=== PATIENT | female | born 1975 | race Caucasian/White ===

== ENCOUNTER 2022-09-12 14:17 | Emergency (ER) | payer BC, SELFPAY ==
[2022-09-12 15:22] VITALS: BP 187/97; PULSE 94; RESP 18; TEMP 36.8; O2SAT 99; BMI 26.6
--- NOTE | 2022-09-12 17:09 | ED_ITS ---
HPI - General Adult General Chief complaint: High Blood Pressure Stated complaint: High blood pressure Time Seen by Provider: 09/12/22 16:35 History of Present Illness HPI narrative: 47-year-old woman presenting here with significant other with concern of elevated blood pressure. Describes a history for years of some degree of white coat hypertension. Usually on the 2nd reading intends to come down. Has been measuring home blood pressures and at work today with more elevated pressure. Periodically will have brief rapid heart rates. Intermittently over the last week has been experiencing some blurriness in the left eye a stinging sensation laterally. That is continuing today. No nausea. Slight headache demonstrating the posterior head/neck. Urine has been dark today in spite of trying to hydrate. No fever. No cough cold symptoms. No hematuria. Has been having also some tingliness over her bilateral forearms hands in blood over her thighs. Does not describe a period of hyperventilating. Also had some tightness intermittently in her chest and little bit in (gesturing to) the left upper arm. She endorses that some of this might be compounded or created by anxiety. Has not had blood work done over the last year probably. Does not have any renal problems and she is aware of. An ophthalmology visit is scheduled for about a month from now. just feeling off and unusual. No 1st degree relatives with cardiovascular disease. Grandfather's with early M I/. Related Data Home Medications Medication Instructions Recorded Confirmed No Known Home Medications 09/12/22 09/12/22 Allergies Allergy/AdvReac Type Severity Reaction Status Date / Time No Known Drug Allergies Allergy Verified 09/12/22 15:26 Review of Systems Status of ROS: Reports: 6 or more systems reviewed and unremarkable except as noted in History and below [facility] Medical History No significant past medical history Social History Smoking Status: Former smoker What tobacco products do you use: cigarettes Smoking quit date/years: >15 years ago Do you use any of these nicotine containing products: None Second hand tobacco smoke exposure: No How often do you have a drink containing alcohol: 2-3 times a week How many standard drinks containing alcohol do you have on a typical day: 1 or 2 How often do you have six or more drinks on one occasion: Never AUDIT-C Alcohol total score: 3 Non-prescribed substance use: denies use Exam Narrative: Exam Narrative: Pleasant. Of good energy. NAD. Skin is warm and dry. Extremities well-perfused without edema. No apparent loss of sensation. Breathing easily. Cardiovascular with regular rate and rhythm. No murmur rub or gallop. CN 2-12 look to be intact. Fundoscopic exam is normal. No focal weakness; good strength throughout. Soreness of low yael-cervical musculature. Visual acuity testing at 20/25 bilaterally. Const: Vital Signs, click to edit/add: Vital Signs - 24 hr 09/12/22 18:54 Blood Pressure [Ri ght Upper Arm] 143/99 H Documenting provider has reviewed patient's vital signs: yes Course Vital Signs Vital signs: Initial Vital Signs Temperature 98.2 F 09/12/22 15:22 Temperature Source Temporal Artery Scan 09/12/22 15:22 Pulse Rate 94 09/12/22 15:22 Respiratory Rate 18 09/12/22 15:22 Blood Pressure 187/97 H 09/12/22 15:22 Blood Pressure Mean 127 09/12/22 15:22 Pulse Oximetry 99 09/12/22 15:22 Oxygen Delivery Method 09/12/22 15:22 Vital Signs Temperature 98.2 F 09/12/22 15:22 Pulse Rate 94 09/12/22 15:22 Respiratory Rate 18 09/12/22 15:22 Blood Pressure 187/97 H 09/12/22 15:22 Pulse Oximetry 99 09/12/22 15:22 Oxygen Delivery Method 09/12/22 15:22 Temperature 98.2 F 09/12/22 15:22 Pulse Rate 94 09/12/22 15:22 Respiratory Rate 18 09/12/22 15:22 Blood Pressure 143/99 H 09/12/22 18:54 Pulse Oximetry 99 09/12/22 15:22 Oxygen Delivery Method 09/12/22 15:22 Medical Decision Making MDM Narrative Medical decision making narrative: Elevated blood pressure which improves during time in emergency department, though still elevated. Not exactly symptoms I would look for for dangerously elevated/malignant hypertension/hypertensive emergency. Screening labs. EKG. All wnl. UA not collected prior to departure. Lab Data Labs: Lab Results 09/12/22 09/12/22 Range/Units 18:50 18:50 WBC 5.86 (4.50-11.00) K/uL RBC 4.48 (4.00-5.20) m/uL Hgb 14.1 (12.0-16.0) gm/dL Hct 42.2 (33.0-51.0) % MCV 94 (80-100) fL MCH 32 (26-34) pg MCHC 33 (32-36) gm/dL RDW Coeff of Gurpreet 11.9 (11.5-15.5) % Plt Count 241 (140-440) K/uL Neut % (Auto) 65.6 (42.0-72.0) % Lymph % (Auto) 25.6 (20-44) % Lamar % (Auto) 7.3 (0.0-11.0) % Eos % (Auto) 0.5 (0.0-7.0) % Baso % (Auto) 1.0 (0.0-3.0) % Neut # (Auto) 3.84 (1.7-7.0) K/uL Lymph # (Auto) 1.50 (0.90-2.90) K/uL Lamar # (Auto) 0.40 (0.00-0.90) K/UL Eos # (Auto) 0.03 (0.00-0.50) K/uL Baso # (Auto) 0.06 (0.00-0.30) K/uL Abs Immat Gran (auto) 0.00 (0.00-0.30) K/uL Imm/Tot Granulo (auto) 0.0 % Sodium 140 (135-149) mmol/L Potassium 4.9 (3.6-5.1) mmol/L Chloride 108 (96-114) mmol/L Carbon Dioxide 24 (20-32) mmol/L BUN 8 (5-24) mg/dL Creatinine 0.6 (0.5-1.5) mg/dL Estimated Creat Clear 112.72 Estimated GFR 111 ml/min Glucose 99 (60-115) mg/dL Calcium 9.4 (8.4-10.6) mg/dL Total Bilirubin 0.6 (0.1-1.5) mg/dL Direct Bilirubin 0.1 (0.0-0.5) mg/dL AST 22 (12-35) U/L ALT 15 (4-35) U/L Alkaline Phosphatase 61 (40-150) U/L Total Protein 7.6 (6.0-8.3) g/dL Albumin 4.7 (3.3-5.0) g/dL ECG Data Attestation: I personally reviewed and interpreted this ECG as follows: (Normal sinus rhythm 92) Discharge Plan Discharge Clinical Impression: Elevated blood pressure reading Patient Disposition: Home w/ Parent or Adult Condition: Stable Additional Instructions: Stay hydrated. No reason to limit activity at this point. A little daily heart pumping exercise does a body good. Get quality and regular sleep. Gentle stretching your neck maybe with neck pull-downs. Repeat a little deeper each time. see handout on upper back stretches/exercises. Return for marked increase in headache, new and focal weakness, loss of vision, repeated vomiting. Check blood pressure every couple of days over the next week after period of rest. Follow-up maybe within 2 weeks with your primary care provider Dr. Dewitt if possible. I will call you with results of your lab tests. Prescriptions: No Action No Known Home Medications Follow Up/Referrals: Margaret Dewitt MD [Primary Care Provider] - Stand Alone Forms: [employer] Info Instructions
[2022-09-12 18:54] VITALS: BP 143/99
[2022-09-12 18:55] LABS: Basophils Absolute Auto 0.06 K/uL (0.00-0.30); Eosinophils Absolute Auto 0.03 K/uL (0.00-0.50); Eosinophils Percent Auto 0.5 % (0.0-7.0); Hematocrit 42.2 % (33.0-51.0); Hemoglobin* 14.1 gm/dL (12.0-16.0); Lymphocytes Percent Auto 25.6 % (20-44); Mean Corpuscular HGB Conc 33 gm/dL (32-36); Mean Corpuscular Hemoglobin 32 pg (26-34); Mean Corpuscular Volume 94 fL (80-100); Monocytes Percent Auto 7.3 % (0.0-11.0); Neutrophils Absolute Auto 3.84 K/uL (1.7-7.0); Neutrophils Percent Auto 65.6 % (42.0-72.0); Platelet Count* 241 K/uL (140-440); RDW Coefficient of Variation % 11.9 % (11.5-15.5); Red Blood Count 4.48 m/uL (4.00-5.20); White Blood Count* 5.86 K/uL (4.50-11.00)
[2022-09-12 18:57] LABS: Slide Review Reflex No
[2022-09-12 19:10] LABS: Albumin* 4.7 g/dL (3.3-5.0); Chloride* 108 mmol/L (96-114)
[2022-09-12 19:11] LABS: Potassium* 4.9 mmol/L (3.6-5.1); Sodium* 140 mmol/L (135-149)
[2022-09-12 19:13] LABS: Bilirubin Direct* 0.1 mg/dL (0.0-0.5); Bilirubin Total* 0.6 mg/dL (0.1-1.5); Blood Urea Nitrogen* 8 mg/dL (5-24); Carbon Dioxide* 24 mmol/L (20-32); Creatinine* 0.6 mg/dL (0.5-1.5); Est. Creatinine Clearance* 112.72; Estimated Glomerular Filt Rate 111 ml/min; Total Protein* 7.6 g/dL (6.0-8.3)
[2022-09-12 19:14] LABS: Alanine Aminotransferase* 15 U/L (4-35); Alkaline Phosphatase* 61 U/L (40-150); Aspartate Amino Transferase* 22 U/L (12-35); Calcium* 9.4 mg/dL (8.4-10.6); Glucose* 99 mg/dL (60-115)
== END 2022-09-12 18:54 | disposition home or self-care (01) ==
PROVIDERS: Emergency Provider Family Medicine; PCP Family Medicine
DX: R03.0 Elevated blood-pressure reading, without diagnosis of hypertension (principal)
CPT/HCPCS: 36415; 80048; 80076; 81001; 85025; 93005; 99283

== ENCOUNTER 2024-07-27 06:14 | Day surgery (SDC) | payer BC, SELFPAY ==
[2024-07-27] VITALS (13 sets, daily range): BP systolic 101–134; BP diastolic 66–85; PULSE 59–76; RESP 16; TEMP 36.6–37.4; O2SAT 94–99; BMI 30.9
[2024-07-27] MEDS: SODIUM CHLORIDE 0.9 % (FLUSH) 10 ML SYRINGE IVF (06:30)
[2024-07-27 06:37] LABS: Ur HCG Qualitative* Negative (Negative)
[2024-07-27] MEDS: 0.9 % SODIUM CHLORIDE 500 ML 500 ML 75 ML IV (07:28)
[2024-07-27] MEDS: CEFAZOLIN 2 GM INJ IVP (07:39)
[2024-07-27] MEDS: BUPIVACAINE 0.25% 30 ML INJECTION (08:30)
--- NOTE | 2024-07-27 09:10 | W.ANESCHARGE ---
Anesthesia Charges Start Date/Time Anesthesia Start Date: 07/27/24 Anesthesia Start Time: 07:31 Stop Date/Time Anesthesia Stop Date: 07/27/24 Anesthesia Stop Time: 09:05
--- NOTE | 2024-07-27 09:12 | W.PM.H&PU ---
History & Physical Update History & Physical Update H&P Reviewed and patient assessed: No changes noted
--- NOTE | 2024-07-27 09:12 | PM.GSPRC ---
Operative Note Date of procedure: 07/27/24 Pre-op diagnosis: Biliary colic Post-op diagnosis: Same Type of Procedure: Laparoscopic cholecystectomy Indications: The patient is a 49-year-old female who presented to the clinic with several years of right upper quadrant pain after eating. Workup revealed gallstones with normal liver function tests. Given that her symptoms seem consistent with biliary colic I recommended cholecystectomy. She agreed to proceed. Procedure Description: After discussing the risks and benefits of the procedure, the patient signed informed consent.? The operative site was marked and the patient was brought to the operating room and placed on the operating table in supine position.? Care was taken to pad the patient's pressure points.?? The patient was then intubated by anesthesia.?? The operative site was then prepped and draped in the usual sterile fashion.? A time-out was then performed. Entrance to the abdomen was gained via a 5 mm Visiport in the left upper quadrant. The abdomen was insufflated and briefly surveyed for signs of injury. There was none. A 10 mm umbilical port was placed as well as 2 working ports along the right costal margin, all under direct vision. The patient was then placed in reverse Trendelenburg position with the right side up. The gallbladder fundus was grasped and retracted cephalad. A small amount of dissection was needed to free omental adhesions from the gallbladder. The infundibulum was grasped. A combination of hook cautery and blunt dissection was used to carefully dissect out the cystic duct and artery until they could clearly be seen entering the gallbladder without any intervening structures. Of note, the cystic duct was dilated with stones impacted within and was tortuous, folding back on itself. The stones were milked retrograde and the duct was dissected out more distally. The duct did not narrow significantly and was too large to clip, therefore after dissecting the gallbladder off the cystic plate, ensuring no additional structures going into the gallbladder, the cystic artery was clipped with 2 clips proximal 1 clip distal and divided. The cystic duct was clipped proximally to control the flow of bile and transected with a scissor. The cystic duct stump was then ligated with both a PDS and a Vicryl endoloop. The gallbladder was then taken off of the liver bed and removed from the abdomen using an Endo-Catch bag. The gallbladder bed was surveyed for hemostasis which appeared adequate. A small amount of bile which had spilled was suctioned from the abdomen. The ports were then removed and the abdomen desufflated. The umbilical port fascia was closed with 0 Vicryl. The skin was closed with absorbable subcuticular suture. Instrument sponge and needle counts were correct at the end of the case. Sterile dressings were then applied. ? The patient was then woken and transported to the recovery area in stable condition. ? The patient tolerated the procedure well. Findings: Gallstones with a long, dilated and tortuous cystic duct. Anesthesia: GETA Surgeon: Jazlyn Douglas MD Estimated blood loss (mL): 10 Specimen: Gallbladder Condition: stable Disposition: PACU
== END 2024-07-27 10:47 | disposition home or self-care (01) ==
PROVIDERS: Anesthesiology; PCP Family Medicine; Visit Provider Surgery
PROC: 0FT44ZZ Resection of Gallbladder, Percutaneous Endoscopic Approach (ICD-10-PCS; CPT 47562; principal; 2024-07-27 07:30)
DX: K80.20 Calculus of gallbladder without cholecystitis without obstruction (principal); R10.11 Right upper quadrant pain; I10 Essential (primary) hypertension
CPT/HCPCS: 47562; 00790; 81025; 88304; J0330; J0665; J0690; J1100; J1630; J2250; J2405; J2704; J3010; J7030